=== PATIENT | male | born 1945 | race Caucasian/White ===

== ENCOUNTER → 2021-12-16 | Outpatient (CLI) | payer OTHER ==
--- NOTE | 2021-12-16 18:45 | RAD ---
Study: US testicular CLINICAL HISTORY: Bilateral pain and swelling. COMPARISON: None available. TECHNIQUE: Ultrasound images of the scrotum was performed with walden-scale and color doppler. FINDINGS: The right testicle measures 3.5 x 2.5 x 2.4 cm and the left testicle 4.2 x 3 x 2.9 cm. Asymmetry in s ize of the testicles favored unlikely of clinical significance. Maintained Doppler flow to both testi cles which is relatively symmetric. Homogeneous parenchyma. No testicular mass. Asymmetric vascularity to the right epididymis. The right epididymal head measures 1.1 cm and the lef t epididymal head 0.6 cm. Prominent right larger than left simple hydroceles. Mild scrotal edema without a scrotal fluid collec tion. No varicocele. IMPRESSION: 1. Asymmetrically hypervascular right epididymis suggestive of epididymitis without associated orchit is. Unremarkable testicles with maintained Doppler flow. 2. Large bilateral simple hydroceles greater in size on the right. 3. Scrotal wall edema. No abscess. Electronically signed by: KARISSA ELIAS MD (12/16/2021 6:43 PM) [facility]
== END ==
LOC: US 17:33
PROVIDERS: ATTEND Neuromusculoskeletal Medicine & OMM
DX: N43.3 Hydrocele, unspecified (principal); N50.89 Other specified disorders of the male genital organs
CPT/HCPCS: 76870